=== PATIENT | female | born 1990 | race Caucasian/White ===

== ENCOUNTER 2024-09-14 15:01 | Outpatient (RCR) | payer OTHER, SELFPAY ==
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
== END 2024-11-23 11:07 | disposition home or self-care (01) ==
LOC: PHYS 15:01
PROVIDERS: Family Provider Obstetrics & Gynecology; PCP Obstetrics & Gynecology; Referring Provider Obstetrics & Gynecology; Visit Provider Obstetrics & Gynecology
DX: M99.05 Segmental and somatic dysfunction of pelvic region (principal); R39.15 Urgency of urination; N39.3 Stress incontinence (female) (male); N94.10 Unspecified dyspareunia
CPT/HCPCS: 97161; 97535